=== PATIENT | female | born 1960 | race Caucasian/White ===

== ENCOUNTER 2022-12-17 16:52 | Emergency (ER) | payer BC, SELFPAY ==
--- NOTE | ~2022-12-17 | XR_ITS ---
EXAMINATION: RIGHT ANKLE, RIGHT FOOT AND RIGHT HAND, X-RAY CLINICAL INFORMATION: Fall with hand ankle and foot pain COMPARISON: None available. TECHNIQUE: 2 views ankle, 2 views foot, 3 views hand FINDINGS: No significant bone joint or soft tissue abnormality is seen in the hand. There is a transverse fracture through the lateral malleolus with associated soft tissue swelling. The ankle mortise appears intact. No foot fracture is seen. Incidental note is made of a cyst in the distal first metacarpal. XR/XR foot RT 2V IMPRESSION: Transverse fracture through the lateral malleolus with associated soft tissue swelling.
--- NOTE | ~2022-12-17 | XR_ITS ---
EXAMINATION: RIGHT ANKLE, RIGHT FOOT AND RIGHT HAND, X-RAY CLINICAL INFORMATION: Fall with hand ankle and foot pain COMPARISON: None available. TECHNIQUE: 2 views ankle, 2 views foot, 3 views hand FINDINGS: No significant bone joint or soft tissue abnormality is seen in the hand. There is a transverse fracture through the lateral malleolus with associated soft tissue swelling. The ankle mortise appears intact. No foot fracture is seen. Incidental note is made of a cyst in the distal first metacarpal. XR/XR ankle RT min 3V IMPRESSION: Transverse fracture through the lateral malleolus with associated soft tissue swelling.
--- NOTE | ~2022-12-17 | US_ITS ---
EXAMINATION: US VENOUS ULTRASOUND WITH DOPPLER LOWER EXTREMITY, RIGHT CLINICAL INFORMATION: Fall. Pain in right calf. COMPARISON: Right ankle and right foot radiographs TECHNIQUE: Ultrasound of the deep veins is performed from the hip to the calf with compression sonography and color and pulse Doppler assessment. Spectral analysis with color-flow imaging is performed. FINDINGS: There is normal venous compression and respiratory variation and augmented flow. The visualized common femoral vein, superficial femoral vein, profunda femoral vein, popliteal vein, and the trifurcation region shows no evidence of deep venous thrombosis. There is no significant popliteal fossa cyst. If the patient's symptoms persist, followup ultrasound in 5 days 7 days might be of value to exclude proximal propagation from a non-visualized calf vein. US/US venous duplex LE RT IMPRESSION: No DVT demonstrated in the right lower extremity.
--- NOTE | ~2022-12-17 | XR_ITS ---
EXAMINATION: RIGHT ANKLE, RIGHT FOOT AND RIGHT HAND, X-RAY CLINICAL INFORMATION: Fall with hand ankle and foot pain COMPARISON: None available. TECHNIQUE: 2 views ankle, 2 views foot, 3 views hand FINDINGS: No significant bone joint or soft tissue abnormality is seen in the hand. There is a transverse fracture through the lateral malleolus with associated soft tissue swelling. The ankle mortise appears intact. No foot fracture is seen. Incidental note is made of a cyst in the distal first metacarpal. XR/XR hand RT 2V IMPRESSION: Transverse fracture through the lateral malleolus with associated soft tissue swelling.
[2022-12-17 17:15] VITALS: BP 124/67; PULSE 72; RESP 20; TEMP 36.9; O2SAT 97; BMI 20.7
--- NOTE | 2022-12-17 17:17 | ED_ITS ---
HPI - General Adult General Chief complaint: Extremity Problem Stated complaint: fell right leg pain,swelling, right hand swelling Time Seen by Provider: 12/17/22 17:36 Source: patient Mode of arrival: ambulatory Limitations: no limitations History of Present Illness HPI narrative: 62-year-old female came in for evaluation after a mechanical fall happened 5 days ago. Patient tripped on step of stairs causing her to fall down twisting her right ankle/right foot/right and/right wrist. No head injury, no LOC. patient was able to ambulate on the right leg using the cane with black and blue to the right leg. But able to bear weight on the right side. No headache, no LOC, no neck pain. Related Data Previous Rx's Medication Instructions Recorded doxycycline hyclate 100 mg tablet 100 mg PO BID #14 tabs 12/17/22 Allergies Allergy/AdvReac Type Severity Reaction Status Date / Time NSAIDS (Non-Steroidal Allergy Intermediate AVOIDS- Unverified 04/09/20 17:41 Anti-Inflamma S/P [NSAIDS (NON-STEROIDAL ULCERATIVE ANTI-INFLAMMA] COLITIS Sulfa (Sulfonamide Allergy Intermediate RASH Unverified 04/09/20 17:41 Antibiotics) [SULFA (SULFONAMIDE ANTIBIOTICS)] ibuprofen Allergy Unknown Verified 11/01/17 00:00 Review of Systems Review of Systems: All other systems are reviewed and are negative Constitutional: Reports as per HPI and Reports no additional constitutional complaints Eyes: Reports as per HPI and Reports no additional eye complaints Reports system reviewed and no additional complaints, except as documented Cardiovascular: Reports as per HPI and Reports no additional cardiovascular complaints Respiratory: Reports as per HPI and Reports no additional respiratory complaints Gastrointestinal: Reports as per HPI and Reports no additional gastrointestinal complaints Genitourinary: Reports no additional female genitourinary complaints Musculoskeletal: Reports no additional musculoskeletal complaints Skin/Breast: Reports system reviewed and no additional complaints, except as docu Psychiatric: Reports no additional psychiatric complaints Endocrine: Reports no additional endocrine complaints Hematologic/Lymphatic: Reports no additional hematologic/lymphatic complaints Allergic/Immunologic: Reports no additional allergic/immunologic complaints Reports system reviewed and no additional complaints, except as documented and Reports Abnormal speech present [facility] Social History Social History Advance Directives: No Advance Directives Information Provided: No Physical Exam ED Vital Signs: Vital Signs - 24 hr 12/17/22 17:15 Temperature 98.4 F Pulse Rate 72 Respiratory Rate 20 Blood Pressure 124/67 Pulse Oximetry 97 Oxygen Delivery Method Room Air BMI result Body Mass Index 20.7 Vital signs have been reviewed as appeared to be correct. Blood pressure normal. Heart rate normal. Respiration rate normal. Temperature normal. Oxygen saturation normal. Appearance: Alert. Oriented X3. No acute distress. Head: Normal external exam. Normocephalic. Atraumatic. No Mag[place] signs noted. No raccoon eyes noted Eyes: PERRLA. EOMI. Conjunctiva and sclera normal. Eyelids normal. ENT: TM's Normal. Pharynx normal. Uvula midline. Moist mucous membranes. No trismus noted. No drooling noted. No muffled voice noted. Neck: Normal inspection. Neck supple. FROM. No adenopathy. Thyroid Normal. No meningeal signs. No neck mass noted. CVS: Normal heart rate and rhythm. Heart sound normal. No murmurs noted. Pulses normal throughout. Respiratory: No respiratory distress. Painless inspiration. Breath sounds normal. No wheezes/rales/rhonchi noted. Chest nontender. No accessory muscle usage noted or decreased air movement noted. Abdomen: Soft and nontender. Bowel sounds normal in all 4 quadrants. No distention noted. No organomegaly noted. No visible injury noted. Back: No CVA tenderness. Full range of motion noted. Skin: Skin warm and dry. Normal skin color. Normal skin turgor. No rashes/lesions/lacerations noted. Extremities: right hand exam: Area of 3 x 3 redness, hotness, tenderness on the dorsum of the right hand. No bite sam. Neuro: Oriented X 3. Cranial nerve exam: II-XII are grossly intact No motor deficit. No sensory deficit. Reflexes normal. Course Course Course Narrative: RME performed by Evelin Bob PA-C. Patient is a 62 year old assigned female at presenting to the emergency department with right foot pain. Patient also has a swollen right hand. Imaging ordered. Patient placed back in the waiting room pending room availability and results. Reevaluation(s) Reevaluation #1: Status post mechanical fall with right leg contusion and lateral malleolus fracture, recommend ice and NSAIDs, non bear weight, splint. right hand cellulitis Medical Decision Making Differential Diagnosis Differential Diagnoses: The differential diagnosis associated with the presentation includes (Right foot fracture, right ankle fracture, DVT, contusion to the right lower extremities.) Admission/Observation Consideration of admission/observation: Escalation of care including admission/observation considered Independent Interpretation I performed an independent interpretation of an: Plain X-Ray (Right foot/right ankle/right hand/right wrist: No acute fracture.) and Ultrasound (Right lower extremities: No DVT.) Radiology Impression Discussion of test interpretation with radiology: I have reviewed the radiologist's reading. Discharge Plan Discharge Clinical Impression: Contusion of lower limb, right, Fracture of lateral malleolus, Cellulitis of hand, right Patient Disposition: Home, Self-Care Instructions: Cellulitis (ED), Contusion in Adults (ED) Prescriptions: New doxycycline hyclate 100 mg tablet 100 mg PO BID Qty: 14 0RF Referrals: Latosha Shelton DO [Primary Care Provider] - Spencer Moralez MD [Physician] - Interventions: ED Discharge Assessment Last Done: 12/17/22 21:05
--- NOTE | 2022-12-17 18:46 | PC.NURSE ---
Ultrasound at bedside
--- NOTE | 2022-12-17 20:23 | PC.NURSE ---
Pt ca&ox3, no signs of distress. Will continue to monitor.
== END 2022-12-17 21:06 | disposition home or self-care (01) ==
PROVIDERS: Emergency Provider Emergency Medicine; PCP Family Medicine
DX: S80.11XA Contusion of right lower leg, initial encounter (principal); L03.113 Cellulitis of right upper limb; S82.64XA Nondisplaced fracture of lateral malleolus of right fibula, initial encounter for closed fracture; M79.604 Pain in right leg; W10.8XXA Fall (on) (from) other stairs and steps, initial encounter; Y93.89 Activity, other specified; Y92.9 Unspecified place or not applicable; Y99.9 Unspecified external cause status
CPT/HCPCS: 29515; 73120; 73610; 73620; 93971; 99284